=== PATIENT | female | born 1965 | race Caucasian/White ===

== ENCOUNTER → 2023-11-23 08:49 | Outpatient (REF) | payer OTHER, SELFPAY | LOC: RAD 08:49 | PROVIDERS: ATTENDING PHYSICIAN Obstetrics & Gynecology; FAMILY PHYSICIAN Emergency Medicine | DX: N92.4 Excessive bleeding in the premenopausal period (principal) | CPT/HCPCS: 76830; 76856 ==

== ENCOUNTER → 2023-12-05 16:34 | Outpatient (REF) | payer OTHER, SELFPAY | LOC: WDC 16:34 | PROVIDERS: ATTENDING PHYSICIAN Obstetrics & Gynecology; FAMILY PHYSICIAN Emergency Medicine | DX: Z12.31 Encounter for screening mammogram for malignant neoplasm of breast (principal) | CPT/HCPCS: 77063; 77067 ==

== ENCOUNTER → 2024-01-05 10:49 | Outpatient (REF) | payer OTHER, SELFPAY | LOC: EEG 10:49 | PROVIDERS: ATTENDING PHYSICIAN Psychiatry & Neurology Neurology; FAMILY PHYSICIAN Emergency Medicine | DX: R25.3 Fasciculation (principal) | CPT/HCPCS: 95816 ==

== ENCOUNTER → 2024-01-24 09:44 | Outpatient (REF) | payer OTHER, SELFPAY | LOC: PAVMRI 09:44 | PROVIDERS: ATTENDING PHYSICIAN Psychiatry & Neurology Neurology; FAMILY PHYSICIAN Emergency Medicine | DX: R25.3 Fasciculation (principal) | CPT/HCPCS: 70551 ==

== ENCOUNTER → 2024-02-02 09:14 | Outpatient (REF) | payer OTHER, SELFPAY | LOC: RAD 09:14 | PROVIDERS: ATTENDING PHYSICIAN Family Medicine | DX: M54.50 Low back pain, unspecified (principal) | CPT/HCPCS: 72100 ==

== ENCOUNTER → 2024-05-24 11:18 | Outpatient (REF) | payer OTHER, SELFPAY | LOC: HWRAD 11:18 | PROVIDERS: ATTENDING PHYSICIAN Emergency Medicine | DX: D72.829 Elevated white blood cell count, unspecified (principal) | CPT/HCPCS: 71046 ==

== ENCOUNTER → 2024-06-24 16:06 | Outpatient (REF) | payer OTHER, SELFPAY | LOC: RAD 16:06 | PROVIDERS: ATTENDING PHYSICIAN Internal Medicine Hematology & Oncology; FAMILY PHYSICIAN Emergency Medicine | DX: D72.829 Elevated white blood cell count, unspecified (principal) | CPT/HCPCS: 71260; 74177; Q9967 ==

== ENCOUNTER → 2024-08-31 07:07 | Outpatient (REF) | payer OTHER, SELFPAY | LOC: MRI 3T 07:07 | PROVIDERS: ATTENDING PHYSICIAN Physician Assistant; FAMILY PHYSICIAN Emergency Medicine | DX: M47.896 Other spondylosis, lumbar region (principal) | CPT/HCPCS: 72148 ==

== ENCOUNTER → 2024-09-21 07:40 | Outpatient (REF) | payer OTHER, SELFPAY | LOC: MRI 07:40 | PROVIDERS: ATTENDING PHYSICIAN Emergency Medicine | DX: R42 Dizziness and giddiness (principal) | CPT/HCPCS: 70553; A9575 ==

== ENCOUNTER 2024-10-13 10:14 | Emergency (ER) | payer OTHER, SELFPAY ==
[2024-10-13 10:18] VITALS: BP 170/100
[2024-10-13 11:05] VITALS: BP 160/80
[2024-10-13 11:07] VITALS: BMI 48.4
[2024-10-13 12:24] VITALS: BP 148/53
[2024-10-13 12:32] LABS: % Basophils 0.5 % (0-2); % Eosinophils 3.3 % (0-6); % Immature Granulocytes 0.4 % (0-0.5); % Monocytes 7.1 % (1.7-9.3); % Neutrophils 62.7 % (42.2-75.2); Absolute Basophils 0.1 10^3/uL (0-0.2); Absolute Eosinophils 0.4 10^3/uL (0-0.7); Absolute Lymphocytes 2.9 10^3/uL (1.2-3.4); Absolute Monocytes 0.8 10^3/uL (0.1-0.6); Hematocrit 42.1 % (37.0-47.0); Mean Corp Hgb Conc. 33.3 g/dL (33.0-37.0); Mean Corpuscular Hgb 30.1 pg (27.0-31.0); Mean Corpuscular Volume 90.5 fL (81.0-99.0); Mean Platelet Volume 11.1 fL (7.4-10.4); Nucleated Red Blood Cells % 0 %; Platelet Count 198 10^3/uL (130-400); Red Blood Cell Count 4.65 10^6/uL (4.20-5.40); White Blood Cell Count 11.1 10^3/uL (4.8-10.8)
[2024-10-13 12:48] LABS: Blood Urea Nitrogen 21 mg/dl (7-17); Calcium 9.3 mg/dl (8.4-10.2); Carbon Dioxide 32 mmol/L (22-30); Chloride 102 mmol/L (98-107); Estimated Creatinine Clearance 104 ml/min; Glucose 98 mg/dl (70-99); Sodium 140 mmol/L (135-145); eGFR > 60.00
[2024-10-13 13:00] VITALS: BP 132/65
--- NOTE | 2024-10-13 13:23 | ED.GENMED ---
History of Present Illness
<Gunner Lopez DO - Last Filed: 10/13/24 13:29>
General
Chief Complaint: Gait Dysfunction
Source: patient
Exam Limitations: none
Time Seen by Provider: 10/13/24 11:35
History of Present Illness
History of Present Illness:
59-year-old female presents with dizziness and feeling off balance for more than 2 months. Patient has had an outpatient MRI. She has seen ENT, PT and neurology. She was advised to see the stroke neurologist at [place] which she is planning to do.
She states she did feel better after psychiatry weaned her off her medicines. Today she states she is frustrated and the symptoms persist. She is a diabetic. Her MRI did have some changes on it that neurology was following.
Past History
<Gunner Lopez DO - Last Filed: 10/13/24 13:29>
Past History
ED Past Medical History: CVA, HTN, Hypercholesterolemia, NIDDM and Psychiatric (Anxiety, depression)
Phy Exam
<Gunner Lopez DO - Last Filed: 10/13/24 13:29>
Physical Exam
Physical Exam:
CONSTITUTIONAL Patient alert and oriented to person, place and time. Well-appearing. Vital signs reviewed. Obese
HEAD atraumatic, normocephalic.
EYES eyelids normal to inspection, Extraocular muscles intact, Conjunctiva normal, Sclera normal.
NECK normal range of motion, Trachea midline, no jugular venous distention.
RESPIRATORY CHEST No respiratory distress noted, Chest expansion equal, Bilateral breath sounds clear.
CARDIOVASCULAR regular rate and rhythm, Heart sounds normal.
ABDOMEN abdomen nontender, Bowel sounds normal. No distention.
BACK normal inspection, no obvious deformities
UPPER EXTREMITY range of motion normal, Motor strength normal, no cyanosis, no edema.
LOWER EXTREMITY range of motion normal, Motor strength normal, no cyanosis, trace bilateral edema.
NEURO Speech normal, No focal motor deficits, Ady coma scale 15, Memory normal, Cranial Nerves intact to screening exam. Normal [id number].
SKIN skin warm, dry, and normal in color.
Course
<Gunner Lopez, DO - Last Filed: 10/13/24 13:29>
Orders/Labs/Results
Orders:
Orders
10/13/24 12:10
Electrocardiogram (*1) Stat
Reason for Study: Other
Other Reason for Exam: neuro symptoms
CT Head W/o Iv Contrast Urgent
Comment:
Reason For Exam: dizzy, now with RDZ, recent MR
Cardiac Monitoring- Treatment ONCE
EKG- Treatment ONCE
10/13/24 12:23
Basic Metabolic Panel Urgent
Complete Blood Count/With Diff Urgent
Abnormal Lab Results
10/13/24
12:23
WBC 11.1 H 10^3/uL
(4.8-10.8)
MPV 11.1 H fL
(7.4-10.4)
Absolute Neuts (auto) 7.0 H 10^3/uL
(1.4-6.5)
Absolute Monos (auto) 0.8 H 10^3/uL
(0.1-0.6)
Carbon Dioxide 32 H mmol/L
(22-30)
BUN 21 H mg/dl
(7-17)
10/13/24 12:23
10/13/24 12:23
Vital Signs
Initial and Last Documented VS:
Initial Vital Signs
Temp Pulse Resp BP Pulse Ox
98.0 F 100 16 170/100 98
10/13/24 10:18 10/13/24 10:18 10/13/24 10:18 10/13/24 10:18 10/13/24 10:18
Last Documented Vital Signs
Temp Pulse Resp BP Pulse Ox
98.0 F 89 16 132/65 97
10/13/24 10:18 10/13/24 13:00 10/13/24 14:04 10/13/24 13:00 10/13/24 11:07
<Deesan Matthews, DO - Last Filed: 10/13/24 14:25>
Orders/Labs/Results
Orders:
Orders
10/13/24 12:10
Electrocardiogram (*1) Stat
Reason for Study: Other
Other Reason for Exam: neuro symptoms
CT Head W/o Iv Contrast Urgent
Comment:
Reason For Exam: dizzy, now with RDZ, recent MR
Cardiac Monitoring- Treatment ONCE
EKG- Treatment ONCE
10/13/24 12:23
Basic Metabolic Panel Urgent
Complete Blood Count/With Diff Urgent
Abnormal Lab Results
10/13/24
12:23
WBC 11.1 H 10^3/uL
(4.8-10.8)
MPV 11.1 H fL
(7.4-10.4)
Absolute Neuts (auto) 7.0 H 10^3/uL
(1.4-6.5)
Absolute Monos (auto) 0.8 H 10^3/uL
(0.1-0.6)
Carbon Dioxide 32 H mmol/L
(22-30)
BUN 21 H mg/dl
(7-17)
10/13/24 12:23
10/13/24 12:23
Vital Signs
Initial and Last Documented VS:
Initial Vital Signs
Temp Pulse Resp BP Pulse Ox
98.0 F 100 16 170/100 98
10/13/24 10:18 10/13/24 10:18 10/13/24 10:18 10/13/24 10:18 10/13/24 10:18
Last Documented Vital Signs
Temp Pulse Resp BP Pulse Ox
98.0 F 89 16 132/65 97
10/13/24 10:18 10/13/24 13:00 10/13/24 14:04 10/13/24 13:00 10/13/24 11:07
<Gunner Lopez, DO - Last Filed: 10/13/24 13:29>
MDM/Problems Addressed
Differential Diagnosis Includes:
Vertigo, CVA, demyelinating disorder, electrolyte imbalance, microvascular ischemic changes
MDM/Problems Addressed:
Dizziness
<Gunner Lopez, DO - Last Filed: 10/13/24 13:29>
*Pulse Oximetry
Patient hypoxic: no
*EKG
Interpreted by ED Provider?: Yes
Rate: normal
Rhythm: sinus
Wisdom: left axis deviation
Ischemia: non-specific ST changes
*Data Analytics Specialist Interpretation
Rate: normal
Interpretation: normal
Rhythm: sinus
*Critical Care Note
Total Time (30-74mins, 75-104mins- exclusive of procedures): Not Applicable
Data Reviewed
Review of Other/Old Records Reveals: Radiology Studies (MRI from September 2024 reviewed)
Source: patient
<Gunner Lopez, DO - Last Filed: 10/13/24 13:29>
Patient Management
Escalation/DeEscalation of care consider admission/obs:
Symptoms have been ongoing for months. Already seen by neurology. Check CT in light of the fact that she does admit to a mild headache. Reassess labs. Signed out to Dr. Matthews pending assessment of results
<Desean Matthews, DO - Last Filed: 10/13/24 14:25>
Update Note
Update Note:
2:12 PM afternoon attending, signout pending CAT scan report, patient with chronic dizziness workup among multiple practitioners already in progress
Long conversation with patient and she is wondering if it could be anxiety asking about lorazepam and if there is a vascular neurologist at [place]
I encouraged her to follow-up with her providers as outlined by her outpatient neurologist, will try a short course of lorazepam
ED Attending Note
<Gunner Lopez, DO - Last Filed: 10/13/24 13:29>
-
Portions of this chart may have been created with voice recognition software.� Occasional wrong word or��sound alike� substitutions may have occurred due to the inherent limitations of voice recognition software.
Discharge Plan
Departure
Patient Disposition: Home (Routine Discharge)
Date of Disposition: 10/13/24
Time of Disposition: 14:12
Patient with high blood pressure during this ER visit?: No
Condition: Good
Discharge Problem:
Headache
Instructions: Headaches in adults
Referrals:
Steph Locke MD [Family Provider] - Next open appointment
Interventions
Interventions:
*Risk Screen - Suicide Last Done: 10/13/24 10:18
*General Assessment Last Done: 10/13/24 11:07
*Neglect/Abuse Screening Last Done: 10/13/24 10:18
*ED- Fall Risk Assessment Last Done: 10/13/24 11:07
*ED COVID-19 Vaccine History Last Done: 10/13/24 11:02
ED- Neurological Assessment Last Done: 10/13/24 11:08
ED-Musculoskeletal Assessment Last Done: 10/13/24 11:08
ED Swallowing Screen Last Done: 10/13/24 11:08
Discharge Date and Time
Print Language: ROMANIAN
[2024-10-13 14:33] VITALS: BP 138/79
== END 2024-10-13 14:34 | disposition home or self-care (01) ==
LOC: EMR 10:14
PROVIDERS: Emergency Medicine; EMERGENCY PHYSICIAN Emergency Medicine; FAMILY PHYSICIAN Emergency Medicine
DX: R51.9 Headache, unspecified (principal); E11.9 Type 2 diabetes mellitus without complications; E78.00 Pure hypercholesterolemia, unspecified; I10 Essential (primary) hypertension; Z86.73 Personal history of transient ischemic attack (TIA), and cerebral infarction without residual deficits
CPT/HCPCS: 99284; 70450; 80048; 85025; 93005

== ENCOUNTER → 2024-10-21 10:37 | Outpatient (REF) | payer OTHER, SELFPAY | LOC: HWRAD 10:37 | PROVIDERS: ATTENDING PHYSICIAN Emergency Medicine | DX: R42 Dizziness and giddiness (principal); R26.89 Other abnormalities of gait and mobility; J34.1 Cyst and mucocele of nose and nasal sinus; J32.0 Chronic maxillary sinusitis | CPT/HCPCS: 93880 ==

== ENCOUNTER → 2024-11-01 16:09 | Outpatient (REF) | payer OTHER, SELFPAY | LOC: MRI 3T 16:09 | PROVIDERS: ATTENDING PHYSICIAN Physician Assistant; FAMILY PHYSICIAN Emergency Medicine | DX: M48.02 Spinal stenosis, cervical region (principal) | CPT/HCPCS: 72156; A9575 ==

== ENCOUNTER 2024-11-02 13:12 | Emergency (ER) | payer OTHER, SELFPAY ==
[2024-11-02 13:22] VITALS: BP 140/104
[2024-11-02 16:00] VITALS: BP 133/89
--- NOTE | 2024-11-02 16:19 | ED.GENMED ---
History of Present Illness
General
Chief Complaint: DVT/Possible Blood Clot
Source: patient
Exam Limitations: none
Time Seen by Provider: 11/02/24 13:52
Nursing documentation reviewed up to this point in time: agreed with
History of Present Illness
History of Present Illness:
Patient is a 59-year-old female presenting to the emergency department for evaluation of atraumatic left lower extremity swelling for the past few weeks. Patient has been following with her primary care regarding worsening swelling and pain in her
left lower leg for which she has had negative x-ray imaging. She was told symptoms were likely secondary to arthritis. Patient has been able to bear weight with cane although she notes that swelling has been persistent. Her brother who works in
[employer] recommended that she come to the emergency department to rule out a blood clot.
Patient denies any numbness/tingling in left lower extremity. No known trauma or inciting event. No chest pain or shortness of breath.
Patient denies any recent travel or recent surgeries. She does believe her father had a history of blood clots.
Past History
Past History
ED Past Medical History: CVA, HTN, Hypercholesterolemia, NIDDM and Psychiatric (Anxiety, depression)
Review of Systems
Review of Systems
Allergies reviewed?: Yes
All Other Systems: ROS reviewed and negative except as documented in HPI and ROS
Phy Exam
Physical Exam
Physical Exam:
Vitals: Mildly hypertensive, tachycardic on arrival, normalized by assessment. Afebrile
General: Patient is well appearing, no acute distress
Skin: Warm and dry, no rashes or lesions
Head: Normocephalic, atraumatic
Eyes: Sclera nonicteric.
Throat: Protecting airway
Neck: Normal ROM, no cervical spine tenderness, no meningismus
Cardiac: Regular rate and rhythm, no murmurs.
Pulm: Normal respiratory effort, no wheezes, rales, rhonchi heard on exam.
Abdomen: No abdominal tenderness.
Extremities: Nonpitting edema of bilateral lower extremities, left> right. Mild tenderness to right medial calf. No erythema or warmth of left lower extremity. No palpable cord. No joint effusion. No bony tenderness of left lower extremity.
Palpable left DP pulse with normal capillary refill. Patient has great range of motion in left ankle and left knee without pain.
Neuro: AAOx3. Grossly intact.
Psychiatric: Normal affect.
Course
Orders/Labs/Results
Orders:
Orders
11/02/24 13:26
US Periph Venous LOWER Ext LT Urgent
Comment:
Reason For Exam: pain and swelling
Vital Signs
Initial and Last Documented VS:
Initial Vital Signs
Temp Pulse Resp BP Pulse Ox
98.6 F 106 16 140/104 94
11/02/24 13:22 11/02/24 13:22 11/02/24 13:22 11/02/24 13:22 11/02/24 13:22
Last Documented Vital Signs
Temp Pulse Resp BP Pulse Ox
98.6 F 94 16 133/89 99
11/02/24 13:22 11/02/24 16:00 11/02/24 16:00 11/02/24 16:00 11/02/24 16:00
MDM/Problems Addressed
Differential Diagnosis Includes:
Not limited to: Osteoarthritis, DVT, dependent edema, lymphedema,
MDM/Problems Addressed:
59-year-old female with atraumatic left lower extremity pain and swelling gradually worsening over the past few weeks. Currently being treated for osteoarthritis by PCP. She has had negative x-ray imaging of left lower extremity. No fever, chest
pain, or shortness of breath. No acute worsening today however wanted to r/o DVT. Vitals and physical exam as above. Peripheral venous ultrasound of left lower extremity obtained without evidence of DVT. No erythema or warmth to suggest infectious
process. Given negative US and no suspicion for infectious process, low suspicion for acute emergent process today. Symptoms possibly secondary to osteoarthritis and dependent edema. She is ambulatory with cane. Ultimately � feel stable for
discharge home with continued primary care f/u. Return precautions discussed.
Chronic conditions affecting care:
Hypertension
Acute Exacerbation and/or Progression of Chronic Illness:
Acutely hypertensive
*Radiology
Radiology exam reviewed: radiology read reviewed
*Pulse Oximetry
Patient hypoxic: no
*EKG
Interpreted by ED Provider?: NA
*Dye Penetrant Testing Technician Interpretation
Rate: Dye Penetrant Testing Technician- N/A
*Critical Care Note
Total Time (30-74mins, 75-104mins- exclusive of procedures): Not Applicable
ED Attending Note
-
Portions of this chart may have been created with voice recognition software.� Occasional wrong word or��sound alike� substitutions may have occurred due to the inherent limitations of voice recognition software.
Discharge Plan
Departure
Patient Disposition: Home (Routine Discharge)
Date of Disposition: 11/02/24
Time of Disposition: 16:39
Patient with high blood pressure during this ER visit?: Yes
Condition: Good
Covid-19: Not Applicable
Discharge Problem:
Pain in left lower leg
Instructions: BLOOD PRESSURE
Prescriptions:
No Action
lorazepam [Ativan] 0.5 mg tablet
0.5 mg PO HS PRN (Reason: anxiety) Qty: 14 0RF
lorazepam [Ativan] 0.5 mg tablet
0.5 mg PO HS PRN (Reason: anxiety) Qty: 13 0RF
Referrals:
Steph Locke MD [Family Provider] - Follow up in 2-3 days
Activity Restrictions/Additional Instructions:
RETURN TO THE EMERGENCY DEPARTMENT WITH ANY WORSENING PAIN OR SWELLING IN LEFT LOWER EXTREMITY, NUMBNESS/TINGLING IN LEFT LEG OR FOOT, CHEST PAIN, SHORTNESS OF BREATH, DIFFICULTY AMBULATING, OR ANY OTHER CONCERNS
- As discussed-your ultrasound showed no evidence of a blood clot in your left lower leg. However�there were a few small veins were not visualized clearly.
- Continue to ice, elevate your leg. Take Tylenol and/or Motrin as needed for pain.
- Follow-up with primary care for further evaluation/management to ensure that symptoms are improving. You may require a repeat ultrasound in 1 week if symptoms persist/worsen as a few veins were not well-visualized.
Monitor symptoms closely return to the emergency department any acute worsening/new symptoms or any other concerns
Interventions
Interventions:
*Risk Screen - Suicide Last Done: 11/02/24 14:13
*General Assessment Last Done: 11/02/24 14:13
*Neglect/Abuse Screening Last Done: 11/02/24 14:13
*ED- Fall Risk Assessment Last Done: 11/02/24 14:13
*Nursing Disposition Last Done: 11/02/24 16:46
ED- Cardiac Assessment Last Done: 11/02/24 14:13
ED- Pulmonary Assessment Last Done: 11/02/24 14:13
ED-Peripheral Vascular Assessment Last Done: 11/02/24 14:13
ED-Skin Assessment Last Done: 11/02/24 14:13
Discharge Date and Time
Discharge Date/Time: 11/02/24 16:47
Print Language: MICRONESIAN
== END 2024-11-02 16:47 | disposition home or self-care (01) ==
LOC: EMR 13:12
PROVIDERS: EMERGENCY PHYSICIAN Student in an Organized Health Care Education/Training Program; FAMILY PHYSICIAN Emergency Medicine
DX: M79.662 Pain in left lower leg (principal); E78.00 Pure hypercholesterolemia, unspecified; I10 Essential (primary) hypertension; E11.9 Type 2 diabetes mellitus without complications; Z86.73 Personal history of transient ischemic attack (TIA), and cerebral infarction without residual deficits
CPT/HCPCS: 99284; 93971

== ENCOUNTER 2024-11-06 14:36 | Emergency (ER) | payer OTHER, SELFPAY ==
[2024-11-06 14:38] VITALS: BP 152/79
[2024-11-06 16:33] VITALS: BMI 48.9
[2024-11-06 16:37] VITALS: BP 136/87
--- NOTE | 2024-11-06 17:45 | ED.GENMED ---
History of Present Illness
General
Chief Complaint: Weakness
Source: patient
Exam Limitations: none
Time Seen by Provider: 11/06/24 16:18
Nursing documentation reviewed up to this point in time: agreed with
History of Present Illness
History of Present Illness:
Patient presents to ED secondary to worsening generalized weakness and 'balance issues', over the past few months. Patient states that she is currently being evaluated by neurologist, Dr. Pérez, at [facility]. Patient has
had an outpatient workup, including MRI brain, MRI cervical/thoracic/lumbar spine. Patient states that MRI had revealed 'white matter disease' and she has been referred to neurovascular specialist for evaluation. Patient has been told by her
neurologist that her symptoms may be secondary to inner ear complications versus arthritis noted on MRI cervical spine. Patient currently uses cane for support. Otherwise, patient denies any new symptoms. Denies headache. Denies blurred vision.
Denies dizziness. Denies urinary or bowel incontinence. Patient also states that she has ongoing left knee pain, for which she is receiving MRI this Monday. Denies loss of appetite.
Past History
Past History
ED Past Medical History: CVA, HTN, Hypercholesterolemia, NIDDM and Psychiatric (Anxiety, depression)
Review of Systems
Review of Systems
Allergies reviewed?: Yes
All Other Systems: ROS reviewed and negative except as documented in HPI and ROS
Constitutional: Reports no symptoms; Denies fever
Cardiac: Reports no symptoms
ABD/GI: Reports no symptoms
Musculoskeletal: Reports back pain
Skin: Reports no symptoms
Neurological: Reports weakness; Denies dizzy or headache
Phy Exam
Physical Exam
Physical Exam:
Physical Exam
General: no apparent distress, not acutely ill. afebrile
Head: nc/at. eomi
Neck: supple. normal range of motion.
Neuro: alert and oriented x 3. no focal neurological deficits
Skin: no rash
Psychiatric: well kept. interactive and cooperative
Extremities: no edema. no calf tenderness.
Course
Orders/Labs/Results
Orders:
Orders
11/06/24 17:45
Oxycodone/Acetaminophen [Percocet 5/325] 1 tablet PO NOW STA
Vital Signs
Initial and Last Documented VS:
Initial Vital Signs
Temp Pulse Resp BP Pulse Ox
98.3 F 89 16 152/79 96
11/06/24 14:38 11/06/24 14:38 11/06/24 14:38 11/06/24 14:38 11/06/24 14:38
Last Documented Vital Signs
Temp Pulse Resp BP Pulse Ox
98.3 F 65 16 136/87 95
11/06/24 14:38 11/06/24 16:38 11/06/24 16:38 11/06/24 16:37 11/06/24 16:45
MDM/Problems Addressed
MDM/Problems Addressed:
Patient has already called her neurologist at [facility] and has an appointment next Monday. As patient already has had extensive workup at [facility], without any new findings, I do feel it is
reasonable for patient to continue to follow-up with her neurologist at [facility]. Until then however, for more supportive treatment, patient will be provided with a Pt walker at discharge, to be utilized until
reevaluation next week.
Pt given one dose of percocet, to be taken at home, for her knee pain.
*Critical Care Note
Total Time (30-74mins, 75-104mins- exclusive of procedures): Not Applicable
ED Attending Note
-
Portions of this chart may have been created with voice recognition software.� Occasional wrong word or��sound alike� substitutions may have occurred due to the inherent limitations of voice recognition software.
Discharge Plan
Departure
Patient Disposition: Home (Routine Discharge)
Date of Disposition: 11/06/24
Time of Disposition: 17:45
Patient with high blood pressure during this ER visit?: Yes
Condition: Good
Discharge Problem:
Weakness
Instructions: Generalized Weakness (DC)
Prescriptions:
No Action
lorazepam [Ativan] 0.5 mg tablet
0.5 mg PO HS PRN (Reason: anxiety) Qty: 14 0RF
lorazepam [Ativan] 0.5 mg tablet
0.5 mg PO HS PRN (Reason: anxiety) Qty: 13 0RF
Referrals:
Steph Locke MD [Family Provider] -
Activity Restrictions/Additional Instructions:
As discussed, please continue to follow-up with your neurologist and landscape painter for evaluation and treatment. Until then, recommend using provided walker for assistance and stability.
Interventions
Interventions:
*Risk Screen - Suicide Last Done: 11/06/24 14:38
*General Assessment Last Done: 11/06/24 16:33
*Neglect/Abuse Screening Last Done: 11/06/24 14:38
*ED- Fall Risk Assessment Last Done: 11/06/24 16:33
*ED COVID-19 Vaccine History Last Done: 11/06/24 16:33
*Nursing Disposition Last Done: 11/06/24 18:15
ED- Cardiac Assessment Last Done: 11/06/24 17:03
ED- Neurological Assessment Last Done: 11/06/24 17:03
ED- Pulmonary Assessment Last Done: 11/06/24 17:03
Discharge Date and Time
Discharge Date/Time: 11/06/24 18:16
Print Language: HAITIAN
[2024-11-06] MEDS: PERCOCET 5/325 1 TABLET PO (17:55)
== END 2024-11-06 18:16 | disposition home or self-care (01) ==
LOC: EMR 14:36
PROVIDERS: EMERGENCY PHYSICIAN Emergency Medicine; FAMILY PHYSICIAN Emergency Medicine
DX: R53.1 Weakness (principal); I10 Essential (primary) hypertension; E78.00 Pure hypercholesterolemia, unspecified; E11.9 Type 2 diabetes mellitus without complications; F41.9 Anxiety disorder, unspecified; Z86.73 Personal history of transient ischemic attack (TIA), and cerebral infarction without residual deficits
CPT/HCPCS: 99282

== ENCOUNTER → 2024-11-09 07:23 | Outpatient (REF) | payer OTHER, SELFPAY | LOC: MRI 3T 07:23 | PROVIDERS: ATTENDING PHYSICIAN Physician Assistant; FAMILY PHYSICIAN Emergency Medicine | DX: M25.562 Pain in left knee (principal) | CPT/HCPCS: 73721 ==

== ENCOUNTER → 2024-12-06 08:36 | Outpatient (REF) | payer MEDICARE, OTHER, SELFPAY | LOC: MRI 08:36 | PROVIDERS: ATTENDING PHYSICIAN Internal Medicine; FAMILY PHYSICIAN Physician Assistant | DX: R90.82 White matter disease, unspecified (principal) | CPT/HCPCS: 70543; A9575 ==

== ENCOUNTER → 2024-12-10 07:50 | Outpatient (REF) | payer OTHER, SELFPAY | LOC: RAD 07:50 | PROVIDERS: ATTENDING PHYSICIAN Emergency Medicine | DX: R60.0 Localized edema (principal) | CPT/HCPCS: 93970 ==

== ENCOUNTER 2025-03-31 13:32 | Observation (INO) | payer MEDICARE, OTHER, SELFPAY ==
[2025-03-31 07:34] VITALS: BP 173/102
[2025-03-31 08:00] VITALS: BP 148/76
--- NOTE | 2025-03-31 08:30 | ED.CVA ---
History of Present Illness
<Hattie Slater MD, Resident - Last Filed: 03/31/25 16:23>
General
Chief Complaint: CVA/TIA Symptoms
Time Seen by Provider: 03/31/25 08:00
Onset of Stroke Symptoms
Onset of symptoms known: No
Time pt last seen normal is known: No
History of Present Illness
History of Present Illness:
Patient is a 59-year-old female who presents to the emergency department with complaints of right arm heaviness and numbness that started at 2 AM the morning of her presentation. She has a history of stroke or mini stroke, hypertension,
hyperlipidemia, diabetes, anxiety, depression. She takes losartan, metformin, atorvastatin, Motrin, Mounjaro, and recently discontinued a prednisone taper. She states that she was in her normal state of health prior to 2 AM when she went to sleep
but she woke up with right arm heaviness and numbness. She states that she is unsure if she slept on her arm wrong but unfortunately she was not able to shake off the numbness like she usually is able to. She went back to sleep but unfortunately
woke up again few hours later stating that she 'did not feel right.' She called her mom to explain how she felt and her mom encouraged her to present to the emergency department for further evaluation. She denies any shortness of breath, chest
tightness, or chest pain. She does not have any nausea vomiting or diarrhea. She denies any fall. Her bowel and bladder habits remain unchanged. She denies any fever.
Past History
<Hattie Slater MD, Resident - Last Filed: 03/31/25 16:23>
Social History
Tobacco: Non-smoker
Alcohol: None
Drug: None
<Babak Polk DO - Last Filed: 03/31/25 17:02>
Past History
ED Past Medical History: CVA, HTN, Hypercholesterolemia, NIDDM and Psychiatric (Anxiety, depression)
Review of Systems
<Hattie Slater MD, Resident - Last Filed: 03/31/25 16:23>
Review of Systems
Constitutional: Reports no symptoms
EENT: Reports no symptoms
Respiratory: Reports no symptoms
Cardiac: Reports no symptoms
ABD/GI: Reports no symptoms
: Reports no symptoms
Musculoskeletal: Reports other (Right arm weakness)
Skin: Reports no symptoms
Neurological: Reports weakness (Right arm) and numbness (Right arm)
Endocrine: Reports no symptoms
Hematologic/Lymphatic: Reports no symptoms
Psychiatric: Reports no symptoms
Phy Exam
<Hattie Slater MD, Resident - Last Filed: 03/31/25 16:23>
General Physical Exam
General Presentation: well appearing and no apparent distress
General age: appears stated age
General Skin: warm
General Habitus: obese
General Mental: alert
General Hydration: appears well hydrated
Cardiovascular Exam
Cardiovascular Exam: regular rate/rhythm, no edema, no gallop, no JVD and no murmur
Pulmonary Exam
Pulmonary Exam: lungs clear, no respiratory distress, no rales, chest non tender, no crackles, no rhonchi, no stridor, no wheezing and no cough
Musculoskeletal Exam
Musculoskeletal Exam: no edema
Scores
<Hattie Slater MD, Resident - Last Filed: 03/31/25 16:23>
NIH Stroke Score
Level of Consciousness: 0 - Alert
LOC Questions: 0-Answers both correctly
LOC Commands: 0-Performs both correctly
Best Horizontal Gaze: 0-Normal
Visual Reyez: 0=Normal, no visual loss
Facial Palsy: 0=Normal, symmetrical
Motor - Right Arm: 0=No drift 10 seconds
Motor - Left Arm: 0=No drift 10 seconds
Motor - Right Le-No drift 5 seconds
Motor - Left Le-No drift 5 seconds
Limb Ataxia: 0-Absent
Sensation: 0-Normal
Best Language: 0-No aphasia
Dysarthria: 0-Normal
Extinction and Inattention: 0-No abnormality
NIH Total Score:: 0
<Babak Polk, DO - Last Filed: 03/31/25 17:02>
NIH Stroke Score
NIH Total Score:: 0
Course
<Hattie Slater MD, Resident - Last Filed: 03/31/25 16:23>
Orders/Labs/Results
Orders:
Orders
03/31/25 Breakfast
1800 calorie (15 carb) Diabetic
At Your Request: Full Participation
Does patient need a safe tray?: No
03/31/25 08:28
CT Head & Neck Angio W/wo IV Urgent
Comment:
Reason For Exam: Right arm numbness and weakness since 2am
Urinalysis Reflex To Culture Urgent
03/31/25 08:29
CR Chest - 2 Views Urgent
Comment:
Reason For Exam: Right arm numbness and weakness since 2am
03/31/25 09:02
Complete Blood Count/No Diff Urgent
Erythrocyte Sed Rate Urgent
Comment: ADD ON
03/31/25 09:39
0.9% Sodium Chloride 1000 ml [Nss] 1,000 ml IV BOLUS
03/31/25 09:41
Cardiovascular Evaluation Urgent
Comprehensive Metabolic Panel Urgent
Ferritin Urgent
Comment: ADD ON
Folate Urgent
Comment: ADD ON
TSH Reflex To Free T4 Urgent
Comment: ADD ON
Vitamin B12 Urgent
Comment: ADD ON
03/31/25 12:28
Add On- LAB Urgent
Tests Added?: B12, Folate, ferritin, TSH w/ reflex to T4, and ESR
03/31/25 13:22
Admit/Transfer Patient As Directed
Co-Sign Provider:
Level of Care: Observation services
Assign to:: Telemetry
Physician / Group: hattie
Diagnosis: TIA/CVA
Reason for Telemetry: CVA/TIA
Date to Stop Telemetry: 04/03/25
Time to Stop Telemetry: 11:00
03/31/25 13:23
PRN Pain Medication Management As Directed
May give lesser potent ordered pain med per pt: Yes
preference::
Protocol:: Medication orders for pain may be administered in a
manner that supports deferring to patient preference
when the pt is:
- Requesting an ordered lesser potent pain medication.
Least to most potent pain medications are defined
as: acetaminophen < NSAID < tramadol < opioids
(morphine, oxycodone, hydromorphone).
- Requesting a lesser dose of the same medication IF
ORDERED.
- Requesting a less intrusive route of administration
if both routes are prescribed by the provider (PO <
IV).
03/31/25 13:24
Code Status As Directed
Resuscitation Status: Full Code
03/31/25 15:17
Acetaminophen [Tylenol/Feverall] 650 mg RECTAL Q4HPRN PRN
Acetaminophen [Tylenol] 650 mg PO Q4HPRN PRN
Dextrose 50%-Water [Dextrose 50% Syringe] 12.5 grams IV [id number] PRN
Glucagon [GlucaGen] 1 mg IM PRN PRN
Prednisone [Deltasone] 10 mg PO .TAPER
03/31/25 15:17
Case Management Consult ONCE
Case Management Consult: Discharge Planning
Comment: stroke/tia
DIETARY IP CONSULT Routine
Reason for Consult: stroke/TIA
NEUROLOGY CONSULT Routine
Consulting Provider: Justin Grimes
Was physician already notified: Yes
Bedspread Cutter Urgent
MR Brain Without Contrast Routine
Comment:
Reason For Exam: stroke/TIA
Recent pill cam endoscopy?: No
Activity As Directed
Activity Level: As Tolerated
Bedside Glucose Monitoring As Directed
Frequency: AC&HS
Additional Instructions:: Change to q6h if pt on TPN, tube feeding or not eating
NIH Stroke Scale As Directed
Directions: Per protocol
Comment: every shift and with any change in condition or mental status
Neurological Checks As Directed
Frequency: q4h
Additional Instructions:: q4h x 24h upon admission to the floor, then qshift & with any change in condition
and mental status
Patient Education As Directed
Type: Stroke education packet
Comment: provide to patient and family
Pneumatic Compression Sleeves As Directed
Type: Thigh high
Vital Signs As Directed
Frequency: Per unit guidelines
Ot Eval And Treat Routine
Pt Eval And Treat Routine
Activity Level: As Tolerated
Speech Therapy Eval & Treat Routine
DX Deep Vein Thrombosis Video Routine
03/31/25 16:30
Insulin Aspart Corrective Low [Novolog Flexpen-Low Resistance] See Protocol SC AC
03/31/25 22:00
Atorvastatin [Lipitor] 40 mg PO HS
Diazepam [Valium] 2 mg PO HSPRN PRN sleep
losartan-hydrochlorothiazide 1 tablet PO HS
04/01/25 06:00
Cardiovascular Evaluation IN AM
Complete Blood Count/No Diff IN AM
Glycohemoglobin (HgbA1c) IN AM
04/01/25 08:00
Aspirin Chewable [Low Strength Aspirin] 81 mg PO DAILY
04/03/25 11:00
DC Protocol for Telemetry ONCE
Abnormal Lab Results
03/31/25 03/31/25
09:02 09:41
WBC 15.2 H 10^3/uL
(4.8-10.8)
RDW 14.6 H %
(11.5-14.5)
MPV 11.1 H fL
(7.4-10.4)
ESR 35 H mm/hour
(0-20)
Carbon Dioxide 33 H mmol/L
(22-30)
BUN 21 H mg/dl
(7-17)
Glucose 104 H mg/dl
(70-99)
Triglycerides 169 H mg/dl
(10-149)
VLDL Cholesterol, Calc 33 H mg/dl
(0-30)
03/31/25 09:02
03/31/25 09:41
Vital Signs
Initial and Last Documented VS:
Initial Vital Signs
Temp Pulse Resp BP Pulse Ox
98.7 F 61 18 173/102 99
03/31/25 07:34 03/31/25 07:34 03/31/25 07:34 03/31/25 07:34 03/31/25 07:34
Last Documented Vital Signs
Temp Pulse Resp BP Pulse Ox
98.3 F 86 18 152/86 97
03/31/25 15:28 03/31/25 15:28 03/31/25 15:28 03/31/25 15:28 03/31/25 15:28
Caseylt;Babak Polk, DO - Last Filed: 03/31/25 17:02>
Orders/Labs/Results
Orders:
Orders
03/31/25 Breakfast
1800 calorie (15 carb) Diabetic
At Your Request: Full Participation
Does patient need a safe tray?: No
03/31/25 08:28
CT Head & Neck Angio W/wo IV Urgent
Comment:
Reason For Exam: Right arm numbness and weakness since 2am
Urinalysis Reflex To Culture Urgent
03/31/25 08:29
CR Chest - 2 Views Urgent
Comment:
Reason For Exam: Right arm numbness and weakness since 2am
03/31/25 09:02
Complete Blood Count/No Diff Urgent
Erythrocyte Sed Rate Urgent
Comment: ADD ON
03/31/25 09:39
0.9% Sodium Chloride 1000 ml [Nss] 1,000 ml IV BOLUS
03/31/25 09:41
Cardiovascular Evaluation Urgent
Comprehensive Metabolic Panel Urgent
Ferritin Urgent
Comment: ADD ON
Folate Urgent
Comment: ADD ON
TSH Reflex To Free T4 Urgent
Comment: ADD ON
Vitamin B12 Urgent
Comment: ADD ON
03/31/25 12:28
Add On- LAB Urgent
Tests Added?: B12, Folate, ferritin, TSH w/ reflex to T4, and ESR
03/31/25 13:22
Admit/Transfer Patient As Directed
Co-Sign Provider:
Level of Care: Observation services
Assign to:: Telemetry
Physician / Group: hattie
Diagnosis: TIA/CVA
Reason for Telemetry: CVA/TIA
Date to Stop Telemetry: 04/03/25
Time to Stop Telemetry: 11:00
03/31/25 13:23
PRN Pain Medication Management As Directed
May give lesser potent ordered pain med per pt: Yes
preference::
Protocol:: Medication orders for pain may be administered in a
manner that supports deferring to patient preference
when the pt is:
- Requesting an ordered lesser potent pain medication.
Least to most potent pain medications are defined
as: acetaminophen < NSAID < tramadol < opioids
(morphine, oxycodone, hydromorphone).
- Requesting a lesser dose of the same medication IF
ORDERED.
- Requesting a less intrusive route of administration
if both routes are prescribed by the provider (PO <
IV).
03/31/25 13:24
Code Status As Directed
Resuscitation Status: Full Code
03/31/25 15:17
Acetaminophen [Tylenol/Feverall] 650 mg RECTAL Q4HPRN PRN
Acetaminophen [Tylenol] 650 mg PO Q4HPRN PRN
Dextrose 50%-Water [Dextrose 50% Syringe] 12.5 grams IV [id number] PRN
Glucagon [GlucaGen] 1 mg IM PRN PRN
Prednisone [Deltasone] 10 mg PO .TAPER
03/31/25 15:17
Case Management Consult ONCE
Case Management Consult: Discharge Planning
Comment: stroke/tia
DIETARY IP CONSULT Routine
Reason for Consult: stroke/TIA
NEUROLOGY CONSULT Routine
Consulting Provider: Justin Grimes
Was physician already notified: Yes
Bedspread Cutter Urgent
MR Brain Without Contrast Routine
Comment:
Reason For Exam: stroke/TIA
Recent pill cam endoscopy?: No
Activity As Directed
Activity Level: As Tolerated
Bedside Glucose Monitoring As Directed
Frequency: AC&HS
Additional Instructions:: Change to q6h if pt on TPN, tube feeding or not eating
NIH Stroke Scale As Directed
Directions: Per protocol
Comment: every shift and with any change in condition or mental status
Neurological Checks As Directed
Frequency: q4h
Additional Instructions:: q4h x 24h upon admission to the floor, then qshift & with any change in condition
and mental status
Patient Education As Directed
Type: Stroke education packet
Comment: provide to patient and family
Pneumatic Compression Sleeves As Directed
Type: Thigh high
Vital Signs As Directed
Frequency: Per unit guidelines
Ot Eval And Treat Routine
Pt Eval And Treat Routine
Activity Level: As Tolerated
Speech Therapy Eval & Treat Routine
DX Deep Vein Thrombosis Video Routine
03/31/25 16:30
Insulin Aspart Corrective Low [Novolog Flexpen-Low Resistance] See Protocol SC AC
03/31/25 22:00
Atorvastatin [Lipitor] 40 mg PO HS
Diazepam [Valium] 2 mg PO HSPRN PRN sleep
losartan-hydrochlorothiazide 1 tablet PO HS
04/01/25 06:00
Cardiovascular Evaluation IN AM
Complete Blood Count/No Diff IN AM
Glycohemoglobin (HgbA1c) IN AM
04/01/25 08:00
Aspirin Chewable [Low Strength Aspirin] 81 mg PO DAILY
04/03/25 11:00
DC Protocol for Telemetry ONCE
Abnormal Lab Results
03/31/25 03/31/25
09:02 09:41
WBC 15.2 H 10^3/uL
(4.8-10.8)
RDW 14.6 H %
(11.5-14.5)
MPV 11.1 H fL
(7.4-10.4)
ESR 35 H mm/hour
(0-20)
Carbon Dioxide 33 H mmol/L
(22-30)
BUN 21 H mg/dl
(7-17)
Glucose 104 H mg/dl
(70-99)
Triglycerides 169 H mg/dl
(10-149)
VLDL Cholesterol, Calc 33 H mg/dl
(0-30)
03/31/25 09:02
03/31/25 09:41
Vital Signs
Initial and Last Documented VS:
Initial Vital Signs
Temp Pulse Resp BP Pulse Ox
98.7 F 61 18 173/102 99
03/31/25 07:34 03/31/25 07:34 03/31/25 07:34 03/31/25 07:34 03/31/25 07:34
Last Documented Vital Signs
Temp Pulse Resp BP Pulse Ox
98.3 F 86 18 152/86 97
03/31/25 15:28 03/31/25 15:28 03/31/25 15:28 03/31/25 15:28 03/31/25 15:28
<Hattie Slater MD, Resident - Last Filed: 03/31/25 16:23>
*Pulse Oximetry
Patient hypoxic: no
*Critical Care Note
Total Time (30-74mins, 75-104mins- exclusive of procedures): Not Applicable
<Babak Polk DO - Last Filed: 03/31/25 17:02>
*Radiology
Radiology exam reviewed: preliminary read by ED provider (I independently viewed and interpreted two-view chest x-ray showing no acute findings, normal cardiac silhouette, no infiltrates)
*Pulse Oximetry
SaO2: 99
Oxygen Mode of Delivery: Room air
<Hattie Slater MD, Resident - Last Filed: 03/31/25 16:23>
Update Note
Update Note:
Problem List:
Right arm numbness
Right arm weakness
Plan:
CBC and CMP ordered
Urine analysis with reflex to culture
CT angio of head and neck with IV contrast ordered
Differential Diagnoses:
Monday night palsy
TIA/CVA
Cervical radiculopathy
Radiology:
- CT angio of the head and neck with IV contrast conducted on 03/31/2025:
EKG: Not applicable
Labs:
CBC with leukocytosis. White blood cell count 15.2
ESR 35 mm/hour
CMP unremarkable
triglycerides elevated 169, VLDL of 33
vitamin B12 pending
folate within normal limit
TSH within normal limits
Updates:
MRI of the spine showed cervical and thoracic spinal cord intrinsically normal in size, without focal regions of volume loss or expansion. There is no focal signal abnormality in the spinal cord that could be confined to spaces the level
degenerative changes, most notably in the cervical spine with moderate C3-C4 and C4-C5 spinal canal stenosis.
patient to be admitted for further evaluation
ED Attending Note
<Babak Polk, DO - Last Filed: 03/31/25 17:02>
ED Attending Note
Patient seen and examined by attending physician: Yes
I performed the substantive portion of visit, reviewed & personally made and approve the management plan that is documented in note by myself or FLORENCE.: Yes
I performed a history and physical exam of patient and discussed management with resident, I reviewed resident's note and agree with documented findings and plan of care.: Yes
ED Attending Note:
59-year-old female presents to the ER for evaluation of numbness and weakness to her right upper extremity which she noted when she awakened at 2:00 this morning. She states that she was trying to shake her arm through the remainder of the night
trying to get it to return to normal. It feels nearly normal at time of arrival but still complains of feeling of numbness to the arm. She denies any prior history of similar discomforts. She is currently on a steroid taper for joint pains. She
reports that she has been undergoing a workup for possible MS and that she had a previous stroke that was related to vertigo in August. She denies any fevers or chills. No recent syncope or trauma. Vital signs reviewed, patient is awake, alert,
appears in no acute distress, mucous memories moist, conjunctiva pink, GCS is 15, no dysdiadochokinesia, no ataxia, no pronator drift, PERRL, EOMI, heart regular rate and rhythm without murmurs or ectopy, lungs are clear to auscultation without
wheezes rales or rhonchi.
I reviewed MRI brain results from 09/22/2024:
IMPRESSION: Moderate to severe T2 and FLAIR white matter hyperintensities, distribution as described. Additionally, there are are multiple small foci of decreased FLAIR signal in the periventricular white matter, suggesting small periventricular
white matter infarct. Findings suggest small vessel ischemic change which is advanced for the patient's age of 59 years. See above discussion.
No evidence for vestibular schwannoma. No evidence for cerebellopontine angle mass.
Mild increased T2-weighted signal within the left mastoid air cells, which is most likely benign left mastoid effusion. Please correlate with any symptoms that would suggest acute mastoiditis.
Mild diffuse atrophy in this 59-year-old. The callosal angle appears normal.
On sagittal images, suggestion of a degree of cervical spinal cord compression and probably central canal stenosis. As warranted, consider further evaluation with MRI of the cervical spine.
I reviewed all test results with resident physician. Patient given patient multiple risk factors for stroke including diabetes, high cholesterol, age greater than 50, hypertension, she agrees with plan for admission for further evaluation.
-
Portions of this chart may have been created with voice recognition software.� Occasional wrong word or��sound alike� substitutions may have occurred due to the inherent limitations of voice recognition software.
Discharge Plan
Departure
Patient Disposition: Admit
Date of Disposition: 03/31/25
Time of Disposition: 12:57
Admit to: Med/Surg
Presentation/result/management discussed w/ accepting MD/DO: Hospitalist
Discharge Problem:
Arm pain, right
Interventions
Interventions:
*Risk Screen - Suicide Last Done: 03/31/25 08:06
*General Assessment Last Done: 03/31/25 08:06
*Neglect/Abuse Screening Last Done: 03/31/25 08:06
*ED- Fall Risk Assessment Last Done: 03/31/25 08:06
*ED COVID-19 Vaccine History Last Done: 03/31/25 15:30
*Nursing Disposition Last Done: 03/31/25 15:11
ED- Pulmonary Assessment Last Done: 03/31/25 12:00
ED- Neurological Assessment Last Done: 03/31/25 08:06
ED- Cardiac Assessment Last Done: 03/31/25 12:00
ED Swallowing Screen Last Done: 03/31/25 08:06
Discharge Date and Time
Discharge Date/Time: 03/31/25 15:08
[2025-03-31 09:23] LABS: Hematocrit 41.3 % (37.0-47.0); Hemoglobin 13.7 g/dL (12.0-16.0); Mean Corp Hgb Conc. 33.2 g/dL (33.0-37.0); Mean Corpuscular Volume 90.8 fL (81.0-99.0); Platelet Count 203 10^3/uL (130-400); Red Cell Dist. Width 14.6 % (11.5-14.5)
[2025-03-31 10:16] LABS: ALT (SGPT) 26 U/L (0-35); AST (SGOT) 21 U/L (14-36); Albumin 4.0 g/dl (3.5-5.0); Alkaline Phosphatase 93 U/L (38-126); Blood Urea Nitrogen 21 mg/dl (7-17); Calcium 9.4 mg/dl (8.4-10.2); Carbon Dioxide 33 mmol/L (22-30); Chloride 101 mmol/L (98-107); Glucose 104 mg/dl (70-99); HDL Cholesterol 48 mg/dl; LDL Cholesterol, Calculated 70 mg/dl; Potassium 4.4 mmol/L (3.5-5.1); Sodium 140 mmol/L (135-145); Total Protein 6.7 g/dl (6.3-8.2); Very Low Density Lipoprotein 33 mg/dl (0-30); eGFR > 60.00
[2025-03-31 12:00] VITALS: BP 134/71
[2025-03-31] MEDS: NSS 1000 IV (12:16)
--- NOTE | 2025-03-31 13:33 | HPS.HSE ---
Family Physician
-
Family Physician: Vivi Zavala
Chief Complaint
-
RUE symptoms
History of Present Illness
59 y/o F, hx of CVA, HTN, HLD, T2DM, Anxiety/Depression, learning disability, bipolar disorder presenting with RUE symptoms. She reports that at 2 AM today, she went to sleep. She woke up with R arm heaviness and numbness. She was not able to 'shake
off' her symptoms as normally she was able to in the past when she has 'slept on that arm'; she is unaware if she slept on this arm last night. When she woke up again later, she had persistent symptoms and 'did not feel right'. Denies any other
focal complaints. No other complaints overall. Is supposed to be on daily aspirin but states she takes it 'intermittently'.
Is followed by Dr. Aleyda Lenz - [facility] for white matter lesions on prior MRI imaging (felt to be vascular disease) along with chronic vertigo/imbalance.
Had recent MRI imaging 03/2025 at [facility] summarized below:
MRI brain: Redemonstrated are numerous foci of increased T2/FLAIR signal intensity within the periventricular, subcortical, and deep white matter, severe in extent. Foci are also noted in the sejal. No definite new lesions. No lesions demonstrate
enhancement. Ventricles are stable in size and configuration. The left maxillary sinus mucus retention cyst.'
MRI Spine: The cervical and thoracic spinal cord are intrinsically normal in size, without focal regions of volume loss or expansion. There is no focal signal abnormality in the spinal cord that can be confirmed in two planes. No pathologic
enhancement. Vertebral body heights are maintained. Multilevel degenerative changes, most notably in the cervical spine with moderate C3-4 and C4-5 spinal canal stenosis. Partially visualized degenerative changes of the lumbar spine.
Also LP 2 weeks ago with results
glucose: 82
Protein: 43
Colorless
Cell count 1
Oligoclonal band: negative
Albumin 24
IGG 784
Serum ESR 47
GALO negative
Ceruloplasmin 33.2
LATRICE/SPEP: total protein 7.3 (stable from 1 year prior), ALK-phos 122
RPR negative
Recent lipids: LDL 96, TC 164 on 02/28/25. TSH 2.5
Medical History
Past Medical History
Past Medical History: Reports Other (CVA, HTN, HLD, T2DM, Anxiety/Depression, learning disability, bipolar disorder )
Past Surgical History: Reports None
Social History
Tobacco: Non-smoker
Alcohol: None
Drug: None
Family History
Family History: Not pertinent
Allergies / Home Medications
Allergies reflects when Allergies were last updated in [facility] [employer] [facility].
Home Medications with original date entered in [facility]
Allergy/Medication List:
Allergies
Allergy/AdvReac Type Severity Reaction Status Date / Time
fluoxetine (From Prozac) Allergy Pharmacy Verified 11/06/24 14:37
to Review
lithium Allergy Pharmacy Verified 11/06/24 14:37
to Review
Home Medications
aspirin 325 mg tablet 325 mg PO ONCE 03/31/25
atorvastatin 40 mg tablet 40 mg PO HS 03/31/25
diazepam 2 mg tablet 2 mg PO HSPRN PRN sleep 03/31/25
ibuprofen 800 mg tablet 800 mg PO Q8HPRN PRN mild pain 03/31/25
losartan 100 mg-hydrochlorothiazide 12.5 mg tablet 1 tab PO HS 03/31/25
metformin 500 mg tablet 500 mg PO BID 03/31/25
prednisone 10 mg tablet 10 mg PO .TAPER 03/31/25
tirzepatide 2.5 mg/0.5 mL subcutaneous pen injector (Mounjaro) 2.5 mg SC WEEKLY 03/31/25
Review of Systems
-
A 12 point ROS was completed and negative except as noted: Yes
Physical Exam
Vital Signs
Vital Signs
Temp Pulse Resp BP Pulse Ox
98.7 F 61 18 134/71 99
03/31/25 07:34 03/31/25 07:34 03/31/25 07:34 03/31/25 12:00 03/31/25 08:32
Physical Exam
General: No Apparent Distress
HEENT: NormoCephalic and Anicteric
Respiratory: Clear; No Wheezes or Rales
Cardiac: S1/S2 and Regular Rhythm
GI: Soft and Non Tender
Neuro: AO x 3
Psych: Calm
Laboratory Results
-
03/31/25 09:02
03/31/25 09:41
Laboratory Results
Total Bilirubin 0.7 mg/dl (0.2-1.3) 03/31/25 09:41
AST 21 U/L (14-36) 03/31/25 09:41
ALT 26 U/L (0-35) 03/31/25 09:41
Alkaline Phosphatase 93 U/L (38-126) 03/31/25 09:41
Data Reviewed
-
Lab Data: Labs Reviewed by me
Impression/Plan
-
Assessment:
RUE heaviness/numbness, new onset
Hx of CVA 08/2024 per patient
- OBS admission
- check MRI brain to evaluate for acute CVA, patient with higher risk due to co-morbidities, recent CVA 2024 (per patient) and self-reported noncompliance at times with aspirin
- A1c/Lipids
- continue ASA/Statin
- Neuro evaluation
- PT/OT
Essential HTN
- continue ARB/HCTZ
Type 2 DM
- continue Metformin
- continue SSI
- A1c
Anxiety/Depression/Bipolar d/o
Hx of learning disability
- not on any meds per [facility] Chart review
DVT ppx: SCDs
Code: Full
--- NOTE | 2025-03-31 13:58 | CON.NEURO ---
Addendum entered and electronically signed by Justin Grimes MD 03/31/25 16:06:
Studies reviewed.
I have personally examined the patient. I reviewed and agree with the [employer]'s Note.
My addenda:
Awake, alert, interactive. No acute distress.
Speech intact. Anxious.
Follows 2-step requests w/o difficulty. No tremor.
Extra-ocular movements grossly intact.
Facial movements full and symmetric. Hearing intact to normal conversational volume.
Normal UE movements bilaterally.
Patient unable to perform Romberg
Neck: full ROM.
Chest: no dyspnea
Heart: no JVD
Ext: (-) Clubbing, (-) Cyanosis, (-) Edema
IMPRESSIONS/RECOMMENDATIONS:
Abrupt onset of right arm skin sensation change
Differential diagnosis includes TIA, cervical syrinx at C4 etiology, somatization disorder. Prior evaluation for multiple sclerosis by means of lumbar puncture was unrevealing. Patient has no significant lesions in the thoracic spine
Patient was offered medication for control over her discomfort and she declines this currently
Continue use of aspirin
Follow cholesterol levels
Check blood work for potential metabolic causes
Would reconsider use of prednisone as outpatient
Recheck cervical spine MRI to determine if changes demonstrated
D/W patient
All questions answered.
Will continue to follow patient.
Original Note:
Documented by User: Isela May NP 03/31/25 15:43
Neuro Assessment/Plan
Assessment
Patient is a 59 year old right-handed female with a past medical history significant for CVA (09/2024), HTN, HLD, T2DM, Anxiety/Depression, learning disability, bipolar disorder presenting to [facility] on 03/31/2025 for evaluation of RUE numbness.
Cervical MRI 11/01/2024:
Technically suboptimal exam because of motion artifact
Straightening of cervical spine, consistent with muscular spasm
At C6/7, 3 mm midline disc protrusion causes slight flattening of the cord.
At C5/6, 2 mm left paracentral disc protrusion contacts, but does not flatten the cord. Moderate bilateral foraminal stenosis to facet and uncovertebral osteoporosis
Moderate left foraminal stenosis at C4/5 secondary to degenerative findings
Small syrinx in the cervical cord at the level of C4
Nonenhancing region of increased inversion recovery signal in central portion of sejal. This is probably related to chronic small vessel ischemia. If clinically warranted, brain MRI could provide more complete evaluation.
NECK CTA:
1. Mild atherosclerotic plaque in both proximal internal carotid arteries.
2. Mild hypoplasia of the cervical segment of the right vertebral artery.
3. Severe left-sided facet joint arthrosis at C3/C4.
4. Moderate to severe discogenic degenerative disease at C6/C7.
5. Mild multilevel cervical spinal cord compression and central canal stenosis secondary to multilevel disc-osteophyte complexes.
HEAD CTA:
1. SEVERE WHITE MATTER DISEASE in the frontal and parietal lobes which appears unchanged. Diagnostic possibilities are (1) severe white matter leukoaraiosis, (2) demyelinating disease, or (3) vasculitis.
2. Mild calcific atherosclerotic plaque in both intracranial internal carotid arteries.
3. 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
4. Patent bilateral posterior communicating arteries contributing to bilateral posterior cerebral artery blood supply.
Labs: LDL 70
Impression: abrupt onset of right upper extremity numbness in a patient with known degenerative disc disease and 5 x 2 mm syrinx in the cervical cord at the level of C4, cannot rule out acute ischemic CVA
Plan
-check MRI brain without contrast to evaluate for stroke
-check blood work for metabolic abnormalities
-BP goal is normotension.
-start ASA 81mg daily.
-goal LDL<70, current LDL 70 continue atorvastatin 40 mg nightly
-PT/OT/ evaluations
-continue neurochecks and NIHSS per unit guidelines
-stroke education material to be provided
All questions encouraged and answered, plan of care discussed with Dr. Grimes and patient
Consultation
Order
Date of Consultation: 03/31/25
Requesting Provider: hospitalist
Reason for Consult: right upper extremity numbness
Subjective/Objective
Subjective Data
Date of Service: March 31, 2025
Patient is a 59 year old right-handed female with a past medical history significant for CVA (09/2024), HTN, HLD, T2DM, Anxiety/Depression, learning disability, bipolar disorder presenting to [facility] on 03/31/2025 for evaluation of RUE numbness. She
reports that at 2 AM today she woke up and noticed her right upper extremity from shoulder down to her fingers were numb. Denies weakness, denies dropping things. No pain, numbness or tingling in left upper extremity. No issues to RLE or LLE.
Symptoms resolved so went back to sleep then woke up again and noticed it was numb again. She was not able to 'shake off' her symptoms as normally she was able to in the past when she has slept on that arm. No other complaints overall. Is supposed
to be on daily aspirin but states she takes it 'intermittently'. Back in September she had a brain MRI severe cerebral microvascular disease with prominent leukoaraiosis and possible chronic tiny periventricular chronic infarcts. Has had ENT evaluation
with Dr Rico, Had vestibular therapy, no change in symptoms with this. Had video nystagmography (VNG) test, suggestive of a central rather than peripheral cause for her symptoms, possibly a stroke. Also with neck and low back pain. DDD lumbar,
DJD/DDD C spine, small syrinx C4 level in spinal cord noted on MRI in October 2023. Follows in pain management with Sosa Landa PA-C and Dr Purdy at [facility]. Is followed by Dr. Aleyda Lenz - [facility] for white matter lesions
on prior MRI imaging (felt to be vascular disease) along with chronic vertigo/imbalance. She had recent MRI imaging 03/2025 at [facility] summarized below:
MRI brain: Redemonstrated are numerous foci of increased T2/FLAIR signal intensity within the periventricular, subcortical, and deep white matter, severe in extent. Foci are also noted in the sejal. No definite new lesions. No lesions demonstrate
enhancement. Ventricles are stable in size and configuration. The left maxillary sinus mucus retention cyst.'
MRI Spine: The cervical and thoracic spinal cord are intrinsically normal in size, without focal regions of volume loss or expansion. There is no focal signal abnormality in the spinal cord that can be confirmed in two planes. No pathologic
enhancement. Vertebral body heights are maintained. Multilevel degenerative changes, most notably in the cervical spine with moderate C3-4 and C4-5 spinal canal stenosis. Partially visualized degenerative changes of the lumbar spine.
Also LP 2 weeks ago with results
glucose: 82
Protein: 43
Colorless
Cell count 1
Oligoclonal band: negative
Albumin 24
IGG 784
Serum ESR 47
GALO negative
Ceruloplasmin 33.2
LATRICE/SPEP: total protein 7.3 (stable from 1 year prior), ALK-phos 122
RPR negative
Recent lipids: LDL 96, TC 164 on 02/28/25. TSH 2.5
Currently she denies any pain, still endorses numbness to right hand only. Denies any other symptoms. Current LDL 70. NIHSS 0, not a TNK candidate due to out of window and low NIHSS score.
Objective Data
Vital Signs
Temp Pulse Resp BP Pulse Ox
98.7 F 61 18 134/71 99
03/31/25 07:34 03/31/25 07:34 03/31/25 07:34 03/31/25 12:00 03/31/25 08:32
Lab ResultsCu
03/31/25 09:02
03/31/25 09:41
Sodium 140 mmol/L (135-145) 03/31/25 09:41
Potassium 4.4 mmol/L (3.5-5.1) 03/31/25 09:41
BUN 21 mg/dl (7-17) H 03/31/25 09:41
Glucose 104 mg/dl (70-99) H 03/31/25 09:41
Calcium 9.4 mg/dl (8.4-10.2) 03/31/25 09:41
LDL Cholesterol, Calc 70 mg/dl 03/31/25 09:41
Vitamin B12 Cancelled 03/31/25 12:21
Patient Allergies
fluoxetine (From Prozac) Allergy (Verified 11/06/24 14:37)
Pharmacy to Review
lithium Allergy (Verified 11/06/24 14:37)
Pharmacy to Review
CVA Assessment
Onset of Stroke Symptoms
Onset of symptoms known: No
Time pt last seen normal is known: No
NIH Stroke Score
Level of Consciousness: 0 - Alert
LOC Questions: 0-Answers both correctly
LOC Commands: 0-Performs both correctly
Best Horizontal Gaze: 0-Normal
Visual Reyez: 0=Normal, no visual loss
Facial Palsy: 0=Normal, symmetrical
Motor - Right Arm: 0=No drift 10 seconds
Motor - Left Arm: 0=No drift 10 seconds
Motor - Right Le-No drift 5 seconds
Motor - Left Le-No drift 5 seconds
Limb Ataxia: 0-Absent
Sensation: 0-Normal
Best Language: 0-No aphasia
Dysarthria: 0-Normal
Extinction and Inattention: 0-No abnormality
NIH Total Score:: 0
Tenecteplase Contraindications
Inclusion and Exclusion criteria reviewed: Yes
Reasons for NON-Tx with Thrombolytics ABSOLUTE Exclusions: Time-out of window
IAT Contraindications: >6 hrs from onset/last seen normal and NIHSS < 6
Physical Exam
-
General: Comfortable and Appears Stated Age
Eyes: No Ptosis and PERRLA
HEENT: Normocephalic, Atraumatic and Anicteric
Neck: Full Range of Motion
Respiratory: No Dyspnea
Cardiac: No JVD
GI: Non-distended
Skin: Unremarkable
Extremities: No Clubbing, No Cyanosis and Edema +1 (b/l LEs)
Psych: Anxious; Negative Intact Judgement/Insight
Extended Neurological Exam
Mood & Affect: Anxious
Attention Span & Concentration: Awake, Alert, Interactive, Severe Difficulty with 2 Step Request and Other (oriented to month and year)
Memory: Vague and Incomplete Historian
Tremor: Hand Tremor Absent and Head Tremor Absent
Speech: Quality Unremarkable, Quantity Unremarkable and Rate of Production Unremarkable
Cranial Nerve II: Left Eye: Visual Reyez Intact
Cranial Nerve II: Right Eye: Visual Reyez Intact
Cranial Nerves III, IV, : Extraocular Movement: Extraocular Movement Full in all Directions
Cranial Nerve VII: Facial Symmetry: Normal Facial Symmetry
Cranial Nerve VIII: Hearing: Unremarkable Hearing to Normal Conversational Volume
Cranial Nerve XI: Shoulder Shrug: Unremarkable
Muscle Strength, Overall: Full Throughout
Pronator Drift: No Drift in Upper Extremities and No Drift in Lower Extremities
Vibration Sensation: Unremarkable
Coordination: [id number] Testing Unremarkable and Reaches for Objects without Difficulty
Gait & Station: Romberg Test Positive
Data Reviewed
-
CT-A: Report Reviewed and Image Reviewed
MRI Head: Report Reviewed and Image Reviewed
MRI Cervical Spine: Report Reviewed and Image Reviewed
Medical Test Reports: Report Reviewed
Labs: Report Reviewed
Lipid Profile: Report Reviewed
Reviewed with: Physician, Nurse and Patient
Old Records: Summarized
Medications
-
Home Medications
�Medication �Instructions �Recorded
aspirin 325 mg tablet 325 mg PO ONCE 03/31/25
atorvastatin 40 mg tablet 40 mg PO HS 03/31/25
diazepam 2 mg tablet 2 mg PO HSPRN PRN sleep 03/31/25
ibuprofen 800 mg tablet 800 mg PO Q8HPRN PRN mild pain 03/31/25
losartan 100 1 tab PO HS 03/31/25
mg-hydrochlorothiazide 12.5 mg
tablet
metformin 500 mg tablet 500 mg PO BID 03/31/25
prednisone 10 mg tablet 10 mg PO .TAPER 03/31/25
tirzepatide 2.5 mg/0.5 mL 2.5 mg SC WEEKLY 03/31/25
subcutaneous pen injector
(Tracy)
Past History
Past History
ED Past Medical History: CVA, HTN, Hypercholesterolemia, NIDDM and Psychiatric (Anxiety, depression)
Family/Social History
Tobacco: Non-smoker
Alcohol: None
Drug: None

Documented by User: Justin Grimes MD 03/31/25 15:52
CVA Assessment
NIH Stroke Score
NIH Total Score:: 0
--- NOTE | 2025-03-31 14:41 | CM ---
CM reviewed chart and met with pt bedside in ED. Pt lives with her mother in a one story modular home, [address].
Independent in ADLs, personal care and ambulation at baseline, has cane and walker which she uses when outside the home.
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
She does not think she has prescription coverage for meds.
She has been receiving outpatient PT/OT at [facility] in [place], goes twice a week.
VEGA reviewed and signed.
No hx VN or SNF.
PCP: Vivi Zavala
Pharmacy: [facility]
CM will continue to follow for all discharge planning needs.
[2025-03-31 15:05] LABS: Ferritin 97.1 ng/ml (11.1-264.0)
[2025-03-31 15:28] VITALS: BP 152/86
[2025-03-31 15:29] VITALS: BMI 46.3
[2025-03-31 15:37] LABS: Folate 5.7 ng/ml (2.76-20)
[2025-03-31 16:35] LABS: Vitamin B12 405 pg/ml (239-931)
[2025-03-31 17:01] LABS: Glucose - Point of Care 97 mg/dl (70-99)
[2025-03-31] MEDS: GLUCOPHAGE 500 MG PO (17:41)
[2025-03-31] MEDS: DELTASONE 30 MG PO (17:41)
[2025-03-31 19:00] VITALS: BP 135/67
--- NOTE | 2025-03-31 20:47 | PTCARENOTE ---
PCT informed this RN that pt was complaining of numbness and tingling in the right hand and forearm. Hx of a CVA earlier this year, here for R/O CVA/TIA. Pt is ordered NIH and neuro checks. NIH was performed and a score of 0 was obtained. TT keysha
provider to notify about the numbness and tingling and NIH score.
[2025-03-31 21:32] LABS: Glucose - Point of Care 152 mg/dl (70-99)
[2025-03-31] MEDS: ORETIC 12.5 MG PO (21:46)
[2025-03-31] MEDS: LIPITOR 40 MG PO (21:46)
[2025-03-31] MEDS: COZAAR 100 MG PO (21:46)
[2025-03-31 23:05] VITALS: BP 138/72
[2025-04-01 03:00] VITALS: BP 132/68
[2025-04-01 07:15] VITALS: BP 105/73
[2025-04-01 07:49] LABS: Glucose - Point of Care 124 mg/dl (70-99)
--- NOTE | 2025-04-01 07:59 | W.PN.UPDATE ---
Update Note
Progress Note Update
I saw and evaluated the patient. I reviewed the resident�s note and agree with findings and plan as documented in the resident�s note.
No acute complaints at this moment. RUE heaviness has resolved. O/N pt states she had numbness in her R hand but she was able to 'shake it off.'
Gen: NAD, AAOx3.
Eyes: EOMI, PERRLA, no scleral icterus.
Neck: supple.
CV: RRR, +S1/S2, no m/r/g.
Resp: CTAB, no rales, wheezes, or rhonchi.
Abd: +BS, soft, NT, ND
Skin: No rashes.
Neuro: CN 2-12 intact, non-focal.
Psych: Normal mood and affect.
Imaging from [facility]:
MRI brain: Redemonstrated are numerous foci of increased T2/FLAIR signal intensity within the periventricular, subcortical, and deep white matter, severe in extent. Foci are also noted in the sejal. No definite new lesions. No lesions demonstrate
enhancement. Ventricles are stable in size and configuration. The left maxillary sinus mucus retention cyst.
MRI Spine: The cervical and thoracic spinal cord are intrinsically normal in size, without focal regions of volume loss or expansion. There is no focal signal abnormality in the spinal cord that can be confirmed in two planes. No pathologic
enhancement. Vertebral body heights are maintained. Multilevel degenerative changes, most notably in the cervical spine with moderate C3-4 and C4-5 spinal canal stenosis. Partially visualized degenerative changes of the lumbar spine.
LP 2 weeks FITNESS COACH:
glucose: 82
Protein: 43
Colorless
Cell count 1
Oligoclonal band: negative
Albumin 24
NECK CTA 03/31:
1. Mild atherosclerotic plaque in both proximal internal carotid arteries.
2. Mild hypoplasia of the cervical segment of the right vertebral artery.
3. Severe left-sided facet joint arthrosis at C3/C4.
4. Moderate to severe discogenic degenerative disease at C6/C7.
5. Mild multilevel cervical spinal cord compression and central canal stenosis secondary to multilevel disc-osteophyte complexes.
HEAD CTA 03/31:
1. SEVERE WHITE MATTER DISEASE in the frontal and parietal lobes which appears unchanged. Diagnostic possibilities are (1) severe white matter leukoaraiosis, (2) demyelinating disease, or (3) vasculitis.
2. Mild calcific atherosclerotic plaque in both intracranial internal carotid arteries.
3. 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
4. Patent bilateral posterior communicating arteries contributing to bilateral posterior cerebral artery blood supply.
CXR 03/31:
1. Mildly to moderately decreased bilateral lung volumes.
2. No radiographic evidence for pneumonia, acute pulmonary edema, or pleural effusion.
RUE heaviness/numbness, new onset:
-h/o CVA 08/2024 per patient
-Noncompliance with aspirin
-check MRI brain
-cont ASA/statin
-c/s neuro
-PT/OT
-pt's presenting symptoms not c/w acute CVA, more likely cervical radiculopathy
Other problems:
Essential HTN: cont ARB/HCTZ
DM2: cont Metformin/SSI/accuchecks
Anxiety/Depression/Bipolar d/o: not on any meds per [facility] Chart review
Morbid Obesity due to excess calories
FULL/SCDs
[2025-04-01] MEDS: LOW STRENGTH ASPIRIN 81 MG PO (08:15)
[2025-04-01] MEDS: GLUCOPHAGE 500 MG PO (08:15)
[2025-04-01] MEDS: DELTASONE 30 MG PO (08:15)
--- NOTE | 2025-04-01 08:25 | W.PN.HOSP.TC ---
Today's Communication/Plan
-
Possible discharge pending brain and cervical spine MRI results
Prednisone taper
Assessment / Plan
Assessment / Plan
Impression:
59-year-old female with self-reported prior CVA and August 2024 presents with new onset right upper extremity heaviness, numbness and tingling. Stroke workup was started in the ER.
Imaging:
Imaging from [facility]:
MRI brain: Redemonstrated are numerous foci of increased T2/FLAIR signal intensity within the periventricular, subcortical, and deep white matter, severe in extent. Foci are also noted in the sejal. No definite new lesions. No lesions demonstrate
enhancement. Ventricles are stable in size and configuration. The left maxillary sinus mucus retention cyst.
MRI Spine: The cervical and thoracic spinal cord are intrinsically normal in size, without focal regions of volume loss or expansion. There is no focal signal abnormality in the spinal cord that can be confirmed in two planes. No pathologic
enhancement. Vertebral body heights are maintained. Multilevel degenerative changes, most notably in the cervical spine with moderate C3-4 and C4-5 spinal canal stenosis. Partially visualized degenerative changes of the lumbar spine.
LP 2 weeks COMMERCIAL LOAN UNDERWRITER:
glucose: 82
Protein: 43
Colorless
Cell count 1
Oligoclonal band: negative
Albumin 24
NECK CTA 03/31:
1. Mild atherosclerotic plaque in both proximal internal carotid arteries.
2. Mild hypoplasia of the cervical segment of the right vertebral artery.
3. Severe left-sided facet joint arthrosis at C3/C4.
4. Moderate to severe discogenic degenerative disease at C6/C7.
5. Mild multilevel cervical spinal cord compression and central canal stenosis secondary to multilevel disc-osteophyte complexes.
HEAD CTA 03/31:
1. SEVERE WHITE MATTER DISEASE in the frontal and parietal lobes which appears unchanged. Diagnostic possibilities are (1) severe white matter leukoaraiosis, (2) demyelinating disease, or (3) vasculitis.
2. Mild calcific atherosclerotic plaque in both intracranial internal carotid arteries.
3. 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
4. Patent bilateral posterior communicating arteries contributing to bilateral posterior cerebral artery blood supply.
CXR 03/31:
1. Mildly to moderately decreased bilateral lung volumes.
2. No radiographic evidence for pneumonia, acute pulmonary edema, or pleural effusion.
Plan:
Sudden onset right upper extremity weakness, numbness and tingling - differentials include TIA, cervical syrinx at C4, somatization disorder
Hx of CVA 08/2024 per patient
- OBS admission
- NIH 0, Tinels and Phalens maneuver (-)
- recent CVA 2024 (per patient) and self-reported noncompliance at times with aspirin
- Recent LP results help rule out MS with oligoclonal band (-)
- LDL 70 at goal continue atorva 40
- Hg A1c pending
- continue ASA
- Neuro appreciated
- Brain and cervical spine MRI pending - discharge pending results
- PT/OT
- Prednisone taper
Essential HTN
- continue losartan-HCTZ
Type 2 DM
- continue Metformin
- SSI
- A1c pending
Leukocytosis
-Likely secondary to prednisone
Chronic back pain and arthritis
- Started on a prednisone taper starting at 50mg ending at 10 mg over 5 days on or 03/[address] Misa Landa at [facility] for back pain and inflammation 'all over'
- given an additional 30mg last night to prolong taper. 30mg today, 20mg for 2 days then 10mg for 2 days.
Anxiety/Depression/Bipolar disorder
Hx of learning disability
- not on any meds per [place] Chart review
DVT ppx: SCDs
Code: Full
Anticipated Discharge: Within 24 hours
Subjective/Interval History
-
Date of Service: April 01, 2025
Feeling well. States arm weakness, numbness and tingling have completely resolved. Overnight, she did experiencing some numbness in her hand however improved after 'shaking it off.'
Objective Data
-
Labs:
Laboratory Results
04/01/25
06:00
WBC Pending
Hgb Pending
Hct Pending
Plt Count Pending
Vital Signs:
Vital Signs
Temp Pulse Resp BP Pulse Ox
97.6 F 77 16 105/73 97
04/01/25 07:15 04/01/25 07:15 04/01/25 07:15 04/01/25 07:15 04/01/25 07:15
I&O
03/31/25 04/01/25 04/02/25
06:59 06:59 06:59
Intake Total 480 / 480
Balance 480 / 480
Review of Systems
-
History Source: Patient
EENT: Reports No Symptoms Reported
Respiratory: Reports No Symptoms
Cardiac: Reports No Symptoms
Abdomen/GI: Reports No Symptoms
Musculoskeletal: Reports No Symptoms
Neuro: Reports No Symptoms
Physical Exam
-
General: No Apparent Distress and Comfortable
Respiratory: Clear to Auscultation
Cardiac: Regular Rhythm and S1/S2
GI: Soft, Nontender, Nondistended and Normal Bowel Sounds
Musculoskeletal: No Cyanosis and Other (Slight bilateral lower extremity edema)
Neuro: AO x 3, No Motor Deficits, Nonfocal/Grossly Intact, No Sensory Deficits and Other (NIH 0)
Psych: Calm
[2025-04-01 09:25] LABS: Hematocrit 36.7 % (37.0-47.0); Hemoglobin 12.3 g/dL (12.0-16.0); Mean Corp Hgb Conc. 33.5 g/dL (33.0-37.0); Mean Corpuscular Volume 88.2 fL (81.0-99.0); Platelet Count 196 10^3/uL (130-400); Red Cell Dist. Width 14.5 % (11.5-14.5)
--- NOTE | 2025-04-01 09:31 | W.PN.NEURO.1 ---
Addendum entered and electronically signed by Justin Grimes MD 04/01/25 12:53:
Studies reviewed.
I have personally examined the patient. I reviewed and agree with the VIROLOGY TEACHER's Note.
My addenda:
Awake, alert, interactive. No acute distress.
Speech intact.
Follows 2-step requests w/o difficulty. No tremor.
Extra-ocular movements grossly intact.
Facial movements full and symmetric. Hearing intact to normal conversational volume.
Normal UE movements bilaterally.
Neck: full ROM.
Chest: no dyspnea
Heart: no JVD
Ext: (-) Clubbing, (-) Cyanosis, (-) Edema
IMPRESSIONS/RECOMMENDATIONS:
Abrupt onset of right arm skin sensation change
Differential diagnosis includes TIA, cervical syrinx at C4 etiology, somatization disorder.
Prior evaluation for multiple sclerosis by means of lumbar puncture was unrevealing. Patient has no significant lesions in the thoracic spine
Patient was offered medication for control over her discomfort and she declines this currently
Continue use of aspirin
Start vitamin B12 replacement
Would reconsider use of prednisone as outpatient
Recheck cervical spine MRI to determine if changes demonstrated
Continue atorvastatin
Will continue to follow pending results.
Original Note:
Today's Communication / Plan
-
-check MRI brain as planned
-check MRI cervical spine as planned
-BP goal is normotension.
-continue ASA 81mg daily.
-goal LDL<70, current LDL 70 continue atorvastatin 40 mg nightly
-PT/OT evaluations
Neuro Assessment/Plan
Assessment
Patient is a 59 year old right-handed female with a past medical history significant for CVA (09/2024), HTN, HLD, T2DM, Anxiety/Depression, learning disability, bipolar disorder presenting to [facility] on 03/31/2025 for evaluation of RUE numbness.
Brain MRI 09/21/2024:
Moderate to severe T2 and FLAIR white matter hyperintensities, distribution as described. Additionally, there are are multiple small foci of decreased FLAIR signal in the periventricular white matter, suggesting small periventricular white matter
infarct. Findings suggest small vessel ischemic change which is advanced for the patient's age of 59 years. See above discussion.
No evidence for vestibular schwannoma. No evidence for cerebellopontine angle mass.
Mild increased T2-weighted signal within the left mastoid air cells, which is most likely benign left mastoid effusion. Please correlate with any symptoms that would suggest acute mastoiditis.
Mild diffuse atrophy in this 59-year-old. The callosal angle appears normal.
On sagittal images, suggestion of a degree of cervical spinal cord compression and probably central canal stenosis. As warranted, consider further evaluation with MRI of the cervical spine.
Cervical MRI 11/01/2024:
Technically suboptimal exam because of motion artifact
Straightening of cervical spine, consistent with muscular spasm
At C6/7, 3 mm midline disc protrusion causes slight flattening of the cord.
At C5/6, 2 mm left paracentral disc protrusion contacts, but does not flatten the cord. Moderate bilateral foraminal stenosis to facet and uncovertebral osteoporosis
Moderate left foraminal stenosis at C4/5 secondary to degenerative findings
Small syrinx in the cervical cord at the level of C4
Nonenhancing region of increased inversion recovery signal in central portion of sejal. This is probably related to chronic small vessel ischemia. If clinically warranted, brain MRI could provide more complete evaluation.
NECK CTA:
1. Mild atherosclerotic plaque in both proximal internal carotid arteries.
2. Mild hypoplasia of the cervical segment of the right vertebral artery.
3. Severe left-sided facet joint arthrosis at C3/C4.
4. Moderate to severe discogenic degenerative disease at C6/C7.
5. Mild multilevel cervical spinal cord compression and central canal stenosis secondary to multilevel disc-osteophyte complexes.
HEAD CTA:
1. SEVERE WHITE MATTER DISEASE in the frontal and parietal lobes which appears unchanged. Diagnostic possibilities are (1) severe white matter leukoaraiosis, (2) demyelinating disease, or (3) vasculitis.
2. Mild calcific atherosclerotic plaque in both intracranial internal carotid arteries.
3. 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
4. Patent bilateral posterior communicating arteries contributing to bilateral posterior cerebral artery blood supply.
Labs: LDL 70, Hgb A1C pending
Impression: abrupt onset of right upper extremity numbness in a patient with known degenerative disc disease and 5 x 2 mm syrinx in the cervical cord at the level of C4, cannot rule out CVA/TIA
Plan
-check MRI brain as planned
-check MRI cervical spine as planned
-BP goal is normotension.
-continue ASA 81mg daily.
-goal LDL<70, current LDL 70 continue atorvastatin 40 mg nightly
-PT/OT evaluations
All questions encouraged and answered, plan of care discussed with Dr. Grimes and patient
Subjective/Objective
Subjective Data
Date of Service: April 01, 2025
No acute overnight events. Patient up and walking with PT with no issues.
Objective Data
Vital Signs
Temp Pulse Resp BP Pulse Ox
97.6 F 77 16 105/73 97
04/01/25 07:15 04/01/25 07:15 04/01/25 07:15 04/01/25 07:15 04/01/25 07:15
Lab Results
04/01/25 08:48
03/31/25 09:41
Sodium 140 mmol/L (135-145) 03/31/25 09:41
Potassium 4.4 mmol/L (3.5-5.1) 03/31/25 09:41
BUN 21 mg/dl (7-17) H 03/31/25 09:41
Glucose 104 mg/dl (70-99) H 03/31/25 09:41
Calcium 9.4 mg/dl (8.4-10.2) 03/31/25 09:41
LDL Cholesterol, Calc 70 mg/dl 03/31/25 09:41
Vitamin B12 Cancelled 03/31/25 12:21
Patient Allergies
fluoxetine (From Prozac) Allergy (Verified 11/06/24 14:37)
Pharmacy to Review
lithium Allergy (Verified 11/06/24 14:37)
Pharmacy to Review
[2025-04-01 10:00] LABS: HDL Cholesterol 47 mg/dl; LDL Cholesterol, Calculated 74 mg/dl; Very Low Density Lipoprotein 29 mg/dl (0-30)
[2025-04-01 10:25] LABS: Urine Character Clear (Clear)
[2025-04-01 11:00] VITALS: BP 132/68
[2025-04-01 11:43] LABS: Urine Squamous Cell 16-20 /LPF (Few)
[2025-04-01 11:44] LABS: Urine Red Blood Cell None Seen /HPF (0-2); Urine White Cell 16-20 /HPF (0-5)
[2025-04-01 11:50] LABS: Glycohemoglobin (HgbA1c) 6.2 % (4.0-5.6)
[2025-04-01 11:51] LABS: Glucose - Point of Care 120 mg/dl (70-99)
[2025-04-01 15:25] VITALS: BP 150/96
[2025-04-01 15:45] VITALS: PULSE 102; O2SAT 94
[2025-04-01] MEDS: VITAMIN B-12 1000 MCG PO (15:54)
--- NOTE | 2025-04-01 16:31 | W.PN.UPDATE ---
Update Note
Progress Note Update
Brain and cervical spine MRI imaging as below. Discussed with Dr. Grimes and cleared for discharge from neurology standpoint as she does not have a CVA. Will discharge on 81mg aspirin daily completion of the prednisone taper she started here.
Instructed patient to follow-up with spine and interior painter MORIS Landa and Dr. Purdy and neurologist at [facility] Dr. Aleyda Lenz to further evaluate the below findings.
Imaging:
Brain MRI 04/01/25:
1. VERY SEVERE WHITE MATTER DISEASE in both cerebral hemispheres which appears unchanged.
2. Mild paranasal sinus mucosal disease.
3. Severe left-sided facet joint arthrosis at C3/C4.
Cervical spine MRI 04/01/2025:
1. Severe left-sided facet joint arthrosis at C3/C4 causing severe left neural foraminal narrowing.
2. Small central disc herniation at C3/C4 causing mild spinal cord compression and central canal stenosis.
3. Moderate-sized left central disc-osteophyte complex at C5/C6 causing mild spinal cord compression.
4. Moderate-sized central disc herniation at C6/C7 causing mild spinal cord compression.
5. No definitive change compared with the prior MRI examination performed 11/01/2024.
--- NOTE | 2025-04-01 16:37 | W.DCSUMMARY ---
Addendum entered and electronically signed by Catracho López MD 04/02/25 07:41:
Read, reviewed, and agree. See same day progress note for additional details.
MRI brain without acute stroke. Case discussed with Dr. Grimes on 04/01/25 and the pt was cleared for d/c without any medication changes.
Original Note:
Discharge Summary
Discharge Data
Date of Admission: 03/31/25
Date of Discharge: 04/01/25
-
Pending Results: No
Hospital Course
Primary diagnosis:
Severe left-sided facet joint arthrosis at C3/C4 causing severe left neural foraminal narrowing
Small central disc herniation at C3/C4
Right upper extremity weakness
Secondary diagnosis:
Essential hypertension
Type 2 diabetes
Anxiety, depression, bipolar disorder
Hospital course:
59-year-old female with self-reported history of history of CVA presented to the hospital with new onset right upper extremity numbness and heaviness. She recently had extensive neurologic workup including brain MRI, spinal MRI and lumbar puncture
at [place] which revealed white matter vascular disease, multilevel degenerative changes within the spine most notably in the C3-4 and C4-5 spinal canal stenosis. Lumbar puncture had oligoclonal bands negative. Given history, patient admitted for
observation and neurology was consulted. Repeat brain MRI and cervical spine MRI were similar to prior with imaging findings noted below. B12 also noted to be 405.
Today, patient is clinically stable for discharge. Discussed with neurology and okay to discharge on 81 mg aspirin. Finish prednisone taper and follow-up with outpatient neurologist and pain and eviction specialist for further evaluation of findings.
B12 supplement was also started.
Imaging:
Brain MRI 04/01/25:
1. VERY SEVERE WHITE MATTER DISEASE in both cerebral hemispheres which appears unchanged.
2. Mild paranasal sinus mucosal disease.
3. Severe left-sided facet joint arthrosis at C3/C4.
Cervical spine MRI 04/01/2025:
1. Severe left-sided facet joint arthrosis at C3/C4 causing severe left neural foraminal narrowing.
2. Small central disc herniation at C3/C4 causing mild spinal cord compression and central canal stenosis.
3. Moderate-sized left central disc-osteophyte complex at C5/C6 causing mild spinal cord compression.
4. Moderate-sized central disc herniation at C6/C7 causing mild spinal cord compression.
5. No definitive change compared with the prior MRI examination performed 11/01/2024.
Discharge Plan
-
Patient Disposition: Home (Routine Discharge)
Discharge Diagnosis/Procedures: Severe left sided facet joint arthrosis at C3/C4 causing severe left neural foraminal narrowing
Small central disc herniation at C3/C4
Cervical radiculopathy
Right upper extremity numbness and weakness
Condition: Good
Diet: Diabetic, Carb Controlled
Activity: As tolerated
Driving Restrictions: As prior to admission
Bathing Restrictions: None
Referrals:
Vivi Zavala MD [Family Provider, Family Practice] - in less than 1 week
Additional Discharge Medication Instructions: Please take the prednisone taper as prescribed. 20mg daily x 2 days, 10mg daily for 2 days.
Please take aspirin 81mg daily
Please follow up with your spine and pain management Misa Landa and Dr. Purdy at [facility] for further evaluation of your recent imaging findings along with your neurologist at [place] Dr. Aleyda Lenz
Prescriptions:
New
aspirin 81 mg Tablet,Chewable
81 mg PO DAILY Qty: 30 0RF
prednisone 10 mg Tablet
See Rx Instructions .ROUTE .COMPLEX Qty: 6 0RF
Rx Instructions:
Take By Mouth:
20 mg daily x2 days, 10 mg daily x2 days.
cyanocobalamin (vitamin B-12) [Vitamin B-12] 500 mcg Tablet
1,000 mcg PO DAILY Qty: 30 0RF
Continued
atorvastatin 40 mg tablet
40 mg PO HS
metformin 500 mg tablet
500 mg PO BID
diazepam 2 mg tablet
2 mg PO HSPRN PRN (Reason: sleep)
losartan-hydrochlorothiazide 100-12.5 mg tablet
1 tab PO HS
Mounjaro 2.5 mg/0.5 mL pen injector
2.5 mg SC WEEKLY
Discontinued
prednisone 10 mg tablet
10 mg PO .TAPER
Patient Comments:
03/31/2025: Pt states 5 tabs, 4 tabs, 3 tabs, 2 tabs, 1 tab.
aspirin 325 mg Tablet
325 mg PO ONCE
ibuprofen 800 mg tablet
800 mg PO Q8HPRN PRN (Reason: mild pain)
Discharge Orders:
Discharge Patient (As Directed); Ordered 04/01/25
Ordered By: Aisha Jeong
Discharge Date and Time
Print Language: LITHUANIAN
--- NOTE | 2025-04-02 08:11 | CM ---
CM reviewed chart after dc
Pt discharged after hours day prior
per chart review, [facility] outpt therapy recs.
Pt was receiving outpt therapy [facility]AN[facility]
No CM needs noted
== END 2025-04-01 17:14 | disposition home or self-care (01) ==
LOC: 3 WEST ACU 13:32
PROVIDERS: Registered Nurse; ADMITTING PHYSICIAN Internal Medicine; ATTENDING PHYSICIAN Internal Medicine; CONSULT PHYSICIAN Psychiatry & Neurology Neurology; EMERGENCY PHYSICIAN Emergency Medicine; FAMILY PHYSICIAN Family Medicine
DX: M50.01 Cervical disc disorder with myelopathy, high cervical region (principal); R53.1 Weakness; I10 Essential (primary) hypertension; E11.9 Type 2 diabetes mellitus without complications; F41.9 Anxiety disorder, unspecified; F31.9 Bipolar disorder, unspecified; D72.829 Elevated white blood cell count, unspecified; E66.01 Morbid (severe) obesity due to excess calories; Z68.42 Body mass index [BMI] 45.0-49.9, adult; G89.29 Other chronic pain; Z79.899 Other long term (current) drug therapy; Z91.199 Patient's noncompliance with other medical treatment and regimen due to unspecified reason; Z86.73 Personal history of transient ischemic attack (TIA), and cerebral infarction without residual deficits; Z79.84 Long term (current) use of oral hypoglycemic drugs; Z79.82 Long term (current) use of aspirin
CPT/HCPCS: 70496; 70498; 70551; 71046; 72156; 80053; 80061; 81003; 81015; 82607; 82728; 82746; 82962; 83036; 84443; 85027; 85652; 87086; 92523; 96360; 97116; 97163; 97166; 99285; A9585; G0378; Q9967